=== PATIENT | female | born 1995 | race Caucasian/White ===

== ENCOUNTER 2016-12-25 21:11 | Emergency (ER) | payer MEDICAID ==
[~2016-12-25] VITALS: Ht 160 cm; Wt 61.4 kg
[2016-12-25 21:21] VITALS: TEMP 99.3
[2016-12-25 22:27] VITALS: BP 122/89; PULSE 91
== END 2016-12-25 22:27 | disposition home or self-care (01) ==
LOC: COL.ER 21:11
DX: H54.62 Unqualified visual loss, left eye, normal vision right eye (principal); Z86.718 Personal history of other venous thrombosis and embolism